=== PATIENT | female | born 2000 | race Hispanic/Latino ===

== ENCOUNTER 2020-12-07 17:43 | Emergency (ER) | payer SELFPAY ==
--- OUTSIDE RECORDS SUMMARY | 2020-12-07 17:46 | XMS REPORT | Continuity of Care Document ---
:2000 Author Organization [facility] t Address [address] [place] [address] Care Team Providers Name Role Phone Pcp Primary Care Physician Unavailable Crystal Attending Clinician [phone] Mike Attending Clinician Unavailable Bharath Attending Clinician Unavailable Deandre Attending Clinician Unavailable Huyen Attending Clinician Unavailable Peri Attending Clinician Unavailable Presley Attending Clinician Unavailable Fernando Attending Clinician Unavailable Kandi Attending Clinician [phone] Siva Attending Clinician Unavailable Caro Attending Clinician Unavailable Elizabeth Attending Clinician [phone] Mehdi Attending Clinician Unavailable Robert Attending Clinician [phone] Frank Attending Clinician Unavailable Francois Attending Clinician [phone] Sekou Attending Clinician Unavailable Farhat Attending Clinician Unavailable Justin Attending Clinician [phone] Nilesh Attending Clinician Unavailable Kenan Attending Clinician Unavailable Josué Attending Clinician [phone] Santana Attending Clinician Unavailable Juana Attending Clinician [phone] Cyrus Attending Clinician [phone] Galilea Attending Clinician [phone] Scott Attending Clinician Unavailable Manuel Attending Clinician Unavailable Hema Attending Clinician Unavailable Edith Attending Clinician Unavailable Brown Unavailable [phone] Foster Unavailable [phone] MatukVillazon Unavailable [phone] Mwraquel Unavailable [phone] Kandi Unavailable [phone] Perona Unavailable [phone] Problems Condition Condition Condition Status Onset Resolution Last Treating Co mments Source Name Details Category Date Date Treatment Clinician Date Vaccine Condition Active 2015-062016-07-27 Nan Jones against 12:27:54 Elin Commun i disease 00:00: ty NOS 00 Health Verruca Condition Active 2016-02-18 Nan Jones vulgaris, 01-20 09:02:03 Elin Comm uni multiple 00:00: ty 00 Health Encounter Condition Active 2016-02-18 Devonte Jones for 01-20 09:02:03 Elin Communi routine 00:00: ty child 00 Health health examinatio n with abnormal findings Contracept Condition Active 2016-01-21 Devonte Jones ion 01-20 16:53:44 Elin Communi counseling 00:00: ty 00 Health PERSONAL Condition Active 2015-03-30 Devonte Bridges HISTORY OF 01-22 18:23:57 Marycarmen Comm uni ALLERGY TO 00:00: ty MILK 00 Health PRODUCTS Obesity Condition Active 2015-01-26 Gurpreet Bridges egacy 01-22 22:14:03 Marycarmen Communi 00:00: ty 00 Health Hypertrigl Condition Active 2015-01-26 Devonte Bridges yceridemia 01-22 22:14:03 Marycarmen Comm uni 00:00: ty 00 Health BMI, Condition Active 2015-01-26 Nan Bridges pediatric, 01-22 22:14:03 Marycarmen Comm uni 95th 00:00: ty percentile 00 Health and over = 99% ACANTHOSIS Condition Active 2014-01-04 [facility] NIGRICANS 11-01 16:33:46 Eliseo schmitz Co mmuni 00:00: ty 00 Health WEIGHT Condition Active 2014-01-04 [facility] GAIN, 11-01 16:33:46 Eliseo schmitz Commu ni ABNORMAL 00:00: ty 00 Health URI - Condition Active 2018-062019-07-07 2019-04-06 Olimpiaga, Legacy acute 00:00:00 11:42:30 Carretta Comm uni 00:00: ty 00 Health History of Past Illness Condition Condition Condition Status Onset Resolution Last Treating Co mments Source Name Details Category Date Date Treatment Clinician Date Foot pain, Condition Inactiv 2016-12-12 2016-09-11 Camden Chau right e 09-11 00:00:00 11:15:34 Commun i 00:00: ty 00 Health Pharyngiti Condition Inactiv 2016-12-12 2016-09-11 Kandi, Raymon e Legacy s acute e - 00:00:00 11:15:34 Commu ni 00:00: ty 00 Health Allergic Condition Inactiv 2016-2016-11-29 2016-09-11 Perona, Legacy conjunctiv e - 00:00:00 10:57:37 Loren C ommuni itis, 00:00: ty bilateral 00 Health Allergic Condition Inactiv 2016-2016-11-29 2016-09-11 Perona, Legacy rhinitis e 08-29 00:00:00 10:57:37 Loren Com carlos 00:00: ty 00 Health Depo Condition Inactiv 2015-2016-07-27 2016-07-27 Devonte Jones Provera e 0- 00:00:00 12:42:29 Elin Comm uni injection 00:00: ty administer 00 Health ed Chlamydia Condition Inactiv 2015-2016-07-27 2016-07-27 Robert, Tr eated, Legacy trachomati e 02-02 00:00:00 12:42:29 Elin reported Communi s 00:00: ty 00 Health Pharyngiti Condition Inactiv 2015-2016-05-20 2016-03-23 Devonte Jones s acute e 02-17 00:00:00 18:17:00 Elin Comm uni 00:00: ty 00 Health Abdominal Condition Inactiv 2014-2016-01-21 2016-01-21 Robert [facility] pain e 01-22 00:00:00 16:53:44 Elin Commu ni 00:00: ty 00 Health WELL CHILD Condition Inactiv 2013-2016-01-21 2016-01-21 Devonte Jones EXAMINATIO e 01-04 00:00:00 16:53:44 Elin C ommuni N 00:00: ty 00 Health SORE Condition Inactiv 2013-2014-01-04 2014-01-05 [facility] [facility] THROAT, e -14 00:00:00 08:50:26 Eliseo schmitz Co mmuni STREPTOCOC 00:00: ty KYLE 00 Health Allergies, Adverse Reactions, Alerts This patient has no known allergies or adverse reactions. Social History Social Habit Start Date Stop Date Quantity Comments Source Sex Assigned At [facility] passive cigarette 2019-04-06 2019-04-06 No Legacy smoke exposure 10:35:47 10:35:47 [facility] Health social history 2016-09-11 2016-09-11 reviewed - no Legacy reviewed E&M 10:25:46 10:25:46 changes required [facility] sexual orientation 2016-09-11 2016-09-11 Heterosexual Lega cy 10:25:46 10:25:46 [facility] social history E&M 2016-01-21 2016-01-21 Live with mother, Legacy 15:45:35 15:45:35 father and two [facility] other sibilings Health condom use 2016-01-21 2016-01-21 yes Legacy 15:45:35 15:45:35 [facility] Gender(s) of 2016-01-21 2016-01-21 Male Legacy previous or current 15:45:35 15:45:35 Commu nity sexual relationships Heal th Ever had sexual 2016-01-21 2016-01-21 Yes Legacy intercourse? 15:45:35 15:45:35 [facility] drug use, illicit 2016-01-21 2016-01-21 Never Legacy 15:45:35 15:45:35 [facility] alcohol use 2016-01-21 2016-01-21 Never Legacy 15:45:35 15:45:35 [facility] is there any chance 2015-01-22 2015-01-22 No Legac y that you could be 16:11:48 16:11:48 Communi ty ? Health Smoking Status Start Date Stop Date Source Never smoked tobacco (finding) L egacy [facility] Medications Ordered Filled Start Stop Current Ordering Indication Dosage Frequency Signature Comments Components Source Medication Medication Date Date Medication? Clinician (SIG) Name Name (IBUPROFEN) 2018-06- No Carretta 2tab by Legacy 200 MG TABS 0-17 - Mwesiga mouth Com carlos 00:00: 00:00 every 6-8 ty 00 :00 hours as Health needed for pain, fever BROMFED DM 2018-06- No Carretta 10mL 4xD 10ml By Legacy (PSEUDOEPH- 0-17 10- Mwesiga Mouth Com carlos BROMPHEN-DM 00:00: 00:00 every 6hrs ty ) 30-2-10 00 :00 As Needed Healt h MG/5ML SYRP azithromyci Yes Use as [facility] - (ZITHROMAX 00:00: 1 pack. 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 Israeli Label. ORTHO EVRA 2015- No Legacy 01-20 Communi 00:00: 00:00 ty 00 :00 Health Procedures Procedure Date / Time Performing Source Performed Clinician Rapid Strep - In House 2019-04-06 11:36:33 Kim Rojas [facility] Rapid Strep - In House 2016-09-11 10:57:46 Vazquez Chau [facility] Urinalysis - - In 2016-07-27 13:20:38 Elin Jones [facility] Injection, 2016-07-27 13:02:07 Elin Jones Commu nity medroxyprogesterone acetate Heal th (Depo), 150 mg Injection, 2016-03-24 10:46:38 Elin Jones Commu nity medroxyprogesterone acetate Heal th (Depo), 150 mg Urinalysis - - In 2016-03-23 18:06:07 Elin Jones [facility] Rapid Strep - In House 2016-02-18 09:12:38 Vazquez Chau [facility] Azithromycin oral 2016-02-04 12:09:32 Elin Jones [facility] Urinalysis - - In 2016-01-21 16:44:[address] [facility] Hearing 2016-01-21 16:44:14 Elin Jones Commu [facility] Urinalysis - Dip only - In 2015-01-22 18:11:26 Marycarmen Bridges anupam [facility] Urinalysis - - In 2015-01-22 18:11:26 Marycarmen Bridgesdaniela [facility] Plan of Care Planned Activity Planned Date Details Comments Source Future Scheduled 2020-02-[address] [facility] - Test 00:00:00 (#1) [code = Medical Center INFLUENZA VACCINE (#1)] Encounters Start End Encounter Admission Attending Care Care Encounter Source Date/Time Date/Time Type Type Clinicians Facility Department ID 2019-04-06 2019-04-06 [facility] 00:[facility]:00 00:00:00 Visit Kim Pediatrics [id number] Communi [id number] [facility] 2019-04-06 2019-04-06 [facility] 00:00:00 00:00:00 Visit [facility] [id number] Communi [id number] [facility] 2019-04-06 2019-04-06 Office raquel [facility] Encounter/ Legacy 00:00:00 00:00:00 Visit P[facility]o [id number] Communi [id number] [facility] 2019-04-06 2019-04-06 Office Bharath [facility] Encoun ter/ Legacy 00:00:00 00:00:00 Visit Windy OB [id number] Com carlos [id number] [facility] 2019-01-04 2019-01-04 Office Deandre [facility] Encou nter/ Legacy 00:00:00 00:00:00 Visit Ivett [facility] [id number] Communi [id number] [facility] 2017-12-30 2017-12-30 Office Huyen [facility] Encoun ter/ Legacy 00:00:00 00:00:00 Visit Elin Pediatrics [id number] Communi [id number] [facility] 2017-08-11 2017-08-11 Office [facility] Legacy 00:00:00 00:00:00 Visit [facility] [id number] [facility] 994556 [facility] 2017-04-01 2017-04-01 Office Preload, [facility] Legacy Encounter / Legacy 00:00:00 00:00:00 [facility] [id number] [facility] 030647 [facility] 2016-12-04 2016-12-04 Office Preload [facility] Legacy Encounter / Legacy 00:00:00 00:00:00 Visit [facility] [id number] [facility] [id number] [facility] 2016-09-24 2016-09-24 Office Geri King [facility] Encounter/ Legacy 00:00:00 00:00:00 Visit Kandi [facility] [id number] [address] [place] [address] 179382 [facility] 2016-09-18 2016-09-18 Office Nona Paniagua [facility] E ncounter/ Legacy 00:00:00 00:00:00 Visit Geri [facility] 1 [id number] [facility] Vazquez Chau 862109 [facility] 2016-09-11 2016-09-11 Office KandiVazquez [facility] Encoun ter/ Legacy 00:00:00 00:00:00 Visit Urgent Care [id number] [facility] [id number] [facility] 2016-09-11 2016-09-11 Office Vazquez Chau [facility] Encoun ter/ Legacy 00:00:00 00:00:00 Visit Geri [facility] 1 [id number] [facility] Enrrique Elizondo [id number] [facility] 2016-08-29 2016-08-29 Office Loren Johnson [facility] Encounter/ Legacy 00:00:00 00:00:00 Visit Nona Paniagua [facility] [id number] [facility] 457604 [facility] 2016-07-27 2016-07-27 Office Mehdi [facility] Encou nter/ Legacy 00:00:00 00:00:00 Visit Basilia [facility] [id number] [facility] [id number] [facility] 2016-07-27 2016-07-27 Office Robert [facility] Encounte r/ Legacy 00:00:00 00:00:00 Visit Elin [facility]s [id number] Communi [id number] ty Health 2016-07-27 2016-07-27 Office Robert Elin [facility] E ncounter/ Legacy 00:00:00 00:00:00 Visit Basilia [facility] 1 [id number] [facility] [id number] Health 2016-07-23 2016-07-[address] [facility] Legacy 00:00:00 00:00:00 Visit Elin [facility] [id number] [facility] [id number] Health 2016-06-19 2016-06-19 Office Huyen [facility] Encoun ter/ Legacy 00:00:00 00:00:00 Visit Elin [facility] [id number] [facility] [id number] Health 2016-03-23 2016-03-23 Office KandiVazquez santoyo [facility] Encoun ter/ Legacy 00:00:00 00:00:00 Visit Pediatrics [id number] Communi [id number] Health 2016-03-23 2016-03-23 Office Robert [facility] Encounte r/ Legacy 00:00:00 00:00:00 Visit Elin [facility] [id number] [facility] 760380 Health 2016-03-23 2016-03-23 Office Robert [facility] Encounte r/ Legacy 00:00:00 00:00:00 Visit Elin [facility] [id number] [facility] 947043 ty Health 2016-03-23 2016-03-23 Office RobertElin [facility] E ncounter/ Legacy 00:00:00 00:00:00 Visit Alesha Marie [facility] [id number] [facility] 143518 ty Health 2016-02-18 2016-02-18 Office Vazquez Chau [facility] Encoun ter/ Legacy 00:00:00 00:00:00 Visit Pediatrics [id number] Communi [id number] ty Health 2016-02-18 2016-02-18 Office Vazquez Chau [facility] Encoun ter/ Legacy 00:00:00 00:00:00 Visit Urgent Care [id number] Communi [id number] ty Health 2016-02-18 2016-02-18 Office Vazquez Chau [facility] Encoun ter/ Legacy 00:00:00 00:00:00 Visit Christina Parrish [facility] 1 [id number] [facility] Suraj Sapp 665638 ty Health 2016-02-18 2016-02-18 [facility] Legacy 00:00:00 00:00:00 Visit Elin [facility] [id number] [facility] [id number] Health 2016-02-03 2016-02-03 [facility] Legacy 00:00:00 00:00:00 Visit Elin [facility] [id number] [facility] [id number] ty Health 2016-02-03 2016-02-03 [facility] Legacy 00:00:00 00:00:00 Visit Elin [facility] [id number] [facility] [id number] Health 2016-02-03 2016-02-03 Office Robert [facility] Encounte r/ Legacy 00:00:00 00:00:00 Visit El[facility] [id number] [facility] [id number] Health 2016-02-03 2016-02-03 Office Elin Jones [facility] E ncounter/ Legacy 00:00:00 00:00:00 Visit Bobby [facility] [id number] [facility] Alesha Marie 223029 Health 2016-01-28 2016-01-28 Office Frank [facility] Encounte r/ Legacy 00:00:00 00:00:00 Visit Alesha Pediatric[facility] [id number] [facility] [id number] Health 2016-01-22 2016-01-22 [facility] Legacy 00:00:00 00:00:00 Visit Elin [facility] [id number] [facility] 878733 ty Health 2016-01-21 2016-01-21 Office Robert [facility] Encounte r/ Legacy 00:00:00 00:00:00 Visit Elin [facility] [id number] [facility] 173567 ty Health 2016-01-21 2016-01-21 [facility] Legacy 00:00:00 00:00:00 Visit Elin [facility] [id number] [facility] 384021 ty Health 2016-01-21 2016-01-21 Office Brown, [facility] Encounte r/ Legacy 00:00:00 00:00:00 Visit Elin [facility] [id number] Communi [id number] ty Health 2016-01-21 2016-01-21 Office Robert [facility] Encounte r/ Legacy 00:00:00 00:00:00 Visit Elin [facility] [id number] [facility] 700487 ty Health 2016-01-21 2016-01-21 Office Elin Jones [facility] E ncounter/ Legacy 00:00:00 00:00:00 Visit Meghan Anderson [facility] [id number] [facility] Alesha Marie 637157 Health 2015-06-01 2015-06-01 Office Nilesh [facility] Encounte r/ Legacy 00:00:00 00:00:00 Visit Miriam [facility] [id number] Communi [id number] Health 2015-05-15 2015-05-15 Office Kenan [facility] Encounte r/ Legacy 00:00:00 00:00:00 Visit Chinyere Pediatrics [id number] [facility] 647541 ty Health 2015-01-29 2015-01-29 Office Josué [facility] En[facility]/ Legacy 00:00:00 00:00:00 Visit Casi Pediatrics [id number] Communi [id number] ty Health 2015-01-28 2015-01-28 Office Santana [facility] Encounte r/ Legacy 00:00:00 00:00:00 Visit Stefani Pediatrics [id number] Communi 144414 ty Health 2015-01-28 2015-01-28 Office Juana [facility] Encounte r/ Legacy 00:00:00 00:00:00 Visit Yudi Pediatrics [id number] [facility] 341204 ty Health 2015-01-22 2015-01-22 Office Cyrus [facility] Encounte r/ Legacy 00:00:00 00:00:00 Visit Marycarmen Pediatrics [id number] Communi [id number] ty Health 2015-01-22 2015-01-22 Office Juana [facility] Encounte r/ Legacy 00:00:00 00:00:00 Visit Yudi Pediatrics [id number] [facility] 415676 ty Health 2015-01-22 2015-01-22 Office Boni [facility] Encoun ter/ Legacy 00:00:00 00:00:00 Visit on, Eliseo Community [id number] [facility] [id number] Services Health 2015-01-22 2015-01-22 Office Cyrus [facility] Encounte r/ Legacy 00:00:00 00:00:00 Visit Marycarmen Pediatrics [id number] [facility] [id number] Health 2015-01-22 2015-01-22 Office Cyrus [facility] Encounte r/ Legacy 00:00:00 00:00:00 Visit Marycarmen Pediatrics [id number] [facility] [id number] Health 2015-01-22 2015-01-22 Office Cyrus Marycarmen [facility] E ncounter/ Legacy 00:00:00 00:00:00 Visit Nguyen Chavez [facility] [id number] [facility] Stefani Dillon 245060 Health 2014-03-16 2014-03-16 Office Huyen [facility] Encoun ter/ Legacy 00:00:00 00:00:00 Visit Elin [facility] [id number] [facility] 444159 Health 2014-03-09 2014-03-09 Office Manuel [facility] Encount er/ Legacy 00:00:00 00:00:00 Visit Citlaly Pediatrics [id number] [facility] 738755 Health 2014-01-04 2014-01-04 [facility] Legacy 00:00:00 00:00:00 Visit on, El[facility]o [facility] [id number] [facility] [id number] Health 2014-01-04 2014-01-04 Office Eliseo Calero [facility] est Encounter/ Legacy 00:00:00 00:00:00 Visit Bobby [facility] [id number] [facility] Misti Garrido 63402 0 Health 2013-11-01 2013-11-01 [facility] Legacy 00:00:00 00:00:00 Visit on, [facility] [id number] [facility] [id number] [facility] Health 2013-11-01 2013-11-01 Office [facility] Enco unter/ Legacy 00:00:00 00:00:00 Visit on, Eliseo [facility] [id number] [facility] 026830 [facility] 2013-11-01 2013-11-01 Office MarshallGiorgiomilagros [facility] Enco unter/ Legacy 00:00:00 00:00:00 Visit on, [facility] [id number] [facility] 723902 [facility] 2013-11-01 2013-11-01 Office Dillon, [facility] [place] Encounte r/ Legacy 00:00:00 00:00:00 Visit Stefani Pediatrics [id number] [facility] 131116 [facility] 2013-11-01 2013-11-01 Office Galilea, Eliseo [facility] Encounter/ Legacy 00:00:00 00:00:00 Visit Nguyen Chavez [facility] [id number] [facility] Sera Sharma 825480 [facility] 2010-04-08 2010-04-08 Office Preload, [facility] Legacy Encounter / Legacy 00:00:00 00:00:00 [facility] [id number] [facility] 893002 [facility] 2010-04-08 2010-04-08 Office Preload, [facility] Legacy Encounter / Legacy 00:00:00 00:00:00 Visit [facility] [id number] [facility] 170676 [facility] 2010-04-08 2010-04-08 Office Preload, [facility] Legacy Encounter / Legacy 00:00:00 00:00:00 Visit [facility] [id number] [facility] [id number] [facility] Results Test Description Test Time Test Comments Results Result Comments Source beta streptococcus screen, throat 2019-04-06 16:08:00 Test Item Value Reference Range Interpretation Comme nts beta streptococcus screen, throat (test code = 24940-0) Negative [facility] rapid strep method 2019-04-06 10:35:47 Test Item Value Reference Range Interpretation Comments Microbial identification kit, rapid negative strep method (test code = 96864-2) [facility], urine, [id number] 12:13:59 Test Item Value Reference Range Interpretation Comments beta HCG, urine, semiquantitative negative (test code = 2106-3) [facility] gonorrhoeae DNA [id number] 19:45:00 Test Item Value Reference Range Interpretation Comments Neisseria gonorrhoeae DNA probe Negative Negative (test code = 31850-1) [facility] DNA [id number] 19:45:00 Test Item Value Reference Range Interpretation Comments chlamydia DNA probe (test code = Negative Negative 77510-7) [facility] streptococcus screen, [id number] 12:23:00 Test Item Value Reference Range Interpretation Comments beta streptococcus screen, throat Negative (test code = 68295-1) [facility], rapid strep method 2016-02-18 08:22:20 Test Item Value Reference Range Interpretation Comments Microbial identification kit, rapid negative strep method (test code = 35772-7) [facility] gonorrhoeae DNA [id number] 18:00:00 Test Item Value Reference Range Interpretation Comments Neisseria gonorrhoeae DNA probe Negative Negative (test code = 31731-7) [facility] DNA [id number] 18:00:00 Test Item Value Reference Range Interpretation Comments chlamydia DNA probe (test code = Positive Negative A 09014-9) [facility] H[facility], urine, [id number] 15:45:35 Test Item Value Reference Range Interpretation Comments beta HCG, urine, semiquantitative negative (test code = 2106-3) [facility] gonorrhoeae DNA [id number] 18:22:00 Test Item Value Reference Range Interpretation Comments Neisseria gonorrhoeae DNA probe Negative Negative (test code = 50233-6) [facility] DNA [id number] 18:22:00 Test Item Value Reference Range Interpretation Comments chlamydia DNA probe (test code = Negative Negative 54927-8) [facility] Baptistglucose, urine, [id number] 16:11:48 Test Item Value Reference Range Interpretation Comments glucose, urine, semiquantitative negative (test code = 123) [facility] Baptistbilirubin, [id number] 16:11:48 Test Item Value Reference Range Interpretation Comments bilirubin, urine (test code = 319) negative [facility] Baptistketones, urine, by test [id number] 16:11:48 Test Item Value Reference Range Interpretation Comments ketones, urine, by test strip (test negative code = 322) [facility] Baptistspecific gravity, [id number] 16:11:48 Test Item Value Reference Range Interpretation Comments specific gravity, urine (test code = 1.020 325) [facility] Baptistblood in urine (hemoglobin) by [id number] 16:11:48 Test Item Value Reference Range Interpretation Comments blood in urine (hemoglobin) by negative dipstick (test code = 4998) [facility] BaptistpH, urine, [id number] 16:11:48 Test Item Value Reference Range Interpretation Comments pH, urine, semiquantitative (test code 6.0 = 324) [facility] Baptistprotein, urine, semiquantitative (dipstick)2015-01-22 16:11:48 Test Item Value Reference Range Interpretation Comments protein, urine, semiquantitative negative (dipstick) (test code = 1753-3) [facility] Baptisturobilinogen, urine, semiquantitative (dipstick) 2015-01-22 16:11:48 Test Item Value Reference Range Interpretation Comments urobilinogen, urine, semiquantitative 0.2 (dipstick) (test code = 326) [facility] Baptistnitrite, urine, [id number] 16:11:48 Test Item Value Reference Range Interpretation Comments nitrite, urine, semiquantitative negative (test code = 323) [facility] Baptistleukocyte esterase, urine, by [id number] 16:11:48 Test Item Value Reference Range Interpretation Comments leukocyte esterase, urine, by negative dipstick (test code = 327) [facility] Baptistappearance, [id number] 16:11:48 Test Item Value Reference Range Interpretation Comments appearance, urine (test code = 328) clear [facility] Healthurine [id number] 16:11:48 Test Item Value Reference Range Interpretation Comments urine color (test code = 2751) yellow [facility] Baptistbeta HCG, urine, [id number] 16:11:48 Test Item Value Reference Range Interpretation Comments beta HCG, urine, semiquantitative negative (test code = 2106-3) [facility] Baptistbeta streptococcus screen, [id number] 11:15:00 Test Item Value Reference Range Interpretation Comments beta streptococcus screen, throat Negative (test code = 19519-9) [facility] BaptistEstimated Average [id number] 11:10:00 Test Item Value Reference Range Interpretation Comments Estimated Average Glucose (test 123 mg/dL code = 280417) [facility] Baptisthemoglobin A1C, blood, as % of total [id number] 11:10:00 Test Item Value Reference Range Interpretation Comments hemoglobin A1C, blood, as % of total 5.9 % 4.8-5.6 H hemoglobin (test code = 4548-4) [facility] BaptistLDL cholesterol, [id number] 11:10:00 Test Item Value Reference Range Interpretation Comments LDL cholesterol, serum (test code = 69 mg/dL 0-109 2088-1) [facility] Baptistvery low density [id number] 11:10:00 Test Item Value Reference Range Interpretation Comments very low density lipoproteins (test 44 mg/dL 5-40 H code = 2548) [facility] BaptistHDL cholesterol, [id number] 11:10:00 Test Item Value Reference Range Interpretation Comments HDL cholesterol, serum (test code = 42 mg/dL >39 2084-9) [facility] Baptisttriglyceride, serum, [id number] 11:10:00 Test Item Value Reference Range Interpretation Comments triglyceride, serum, fasting (test 222 mg/dL 0-89 H code = 2571-8) [facility] Baptistcholesterol, [id number] 11:10:00 Test Item Value Reference Range Interpretation Comments cholesterol, serum (test code = 155 mg/dL 828-019 5902-3) [facility] Baptistalanine aminotransferase (SGPT), [id number] 11:10:00 Test Item Value Reference Range Interpretation Comments alanine aminotransferase (SGPT), serum 17 1/L 0-24 (test code = 40) [facility] Baptistaspartate aminotransferase (SGOT), [id number] 11:10:00 Test Item Value Reference Range Interpretation Comments aspartate aminotransferase (SGOT), 25 1/L 0-40 serum (test code = 39) [facility] Baptistalkaline phosphatase, [id number] 11:10:00 Test Item Value Reference Range Interpretation Comments alkaline phosphatase, serum (test 181 1/L 134-349 code = 3) [facility] Baptistbilirubin, serum, [id number] 11:10:00 Test Item Value Reference Range Interpretation Comments bilirubin, serum, total (test code 0.2 mg/dL 0.0-1.2 = 43) [facility] Healthalbumin/globulin ratio, [id number] 11:10:00 Test Item Value Reference Range Interpretation Comments albumin/globulin ratio, serum (test 1.3 1.1-2.5 code = 146) [facility] Healthglobulin, [id number] 11:10:00 Test Item Value Reference Range Interpretation Comments globulin, serum (test code = 3059) 3.6 1.5-4.5 [facility] Healthalbumin, [id number] 11:10:00 Test Item Value Reference Range Interpretation Comments albumin, serum (test code = 2) 4.5 g/dL 3.5-5.5 [facility] Healthprotein, total, [id number] 11:10:00 Test Item Value Reference Range Interpretation Comments protein, total, serum (test code = 8.1 g/dL 6.0-8.5 36) [facility] Healthcalcium, [id number] 11:10:00 Test Item Value Reference Range Interpretation Comments calcium, serum (test code = 11) 10.3 mg/dL 8.9-10.4 [facility] Baptistcarbon dioxide, venous [id number] 11:10:00 Test Item Value Reference Range Interpretation Comments carbon dioxide, venous blood (test 24 mmol/L 17-26 code = 15) [facility] Healthchloride, [id number] 11:10:00 Test Item Value Reference Range Interpretation Comments chloride, serum (test code = 13) 101 mmol/L 97-108 [facility] Healthpotassium, [id number] 11:10:00 Test Item Value Reference Range Interpretation Comments potassium, serum (test code = 35) 4.4 mmol/L 3.5-5.2 [facility] Healthsodium, [id number] 11:10:00 Test Item Value Reference Range Interpretation Comments sodium, serum (test code = 159) 139 mmol/L 134-144 [facility] Baptisturea nitrogen/creatinine ratio, [id number] 11:10:00 Test Item Value Reference Range Interpretation Comments urea nitrogen/creatinine ratio, serum 17 9-25 (test code = 2462) [facility] Healthcreatinine, [id number] 11:10:00 Test Item Value Reference Range Interpretation Comments creatinine, serum (test code = 18) 0.53 mg/dL 0.42-0.75 [facility] Baptisturea nitrogen, [id number] 11:10:00 Test Item Value Reference Range Interpretation Comments urea nitrogen, blood (test code = 9) 9 mg/dL 5-18 [facility] Baptistblood glucose, [id number] 11:10:00 Test Item Value Reference Range Interpretation Comments blood glucose, random (test code = 88 mg/dL 65-99 8) [facility] Baptistimmature granulocytes, percentage of total cells, blood 2013-11-01 11:10:00 Test Item Value Reference Range Interpretation Comments immature granulocytes, percentage of 0 % 0-2 total cells, blood (test code = 449854) [facility] Baptistbasophil count, [id number] 11:10:00 Test Item Value Reference Range Interpretation Comments basophil count, absolute (test 0.0 x10E3/uL 0.0-0.3 code = 96690) [facility] BaptistEosinophil Absolute [id number] 11:10:00 Test Item Value Reference Range Interpretation Comments Eosinophil Absolute Count (test 0.1 X10E3/UL 0.0-0.4 code = 886178) [facility] Baptistmonocyte count, blood, [id number] 11:10:00 Test Item Value Reference Range Interpretation Comments monocyte count, blood, automated 0.6 X10E3/UL 0.1-0.8 (test code = 3076) [facility] Baptistlymphocyte count, blood, [id number] 11:10:00 Test Item Value Reference Range Interpretation Comments lymphocyte count, blood, 3.4 X10E3/UL 1.3-3.7 automated (test code = 3074) [facility] BaptistAbsolute [id number] 11:10:00 Test Item Value Reference Range Interpretation Comments Absolute Neutrophils (test code 3.1 X10E3/UL 1.2-6.0 = 79689) [facility] Baptistbasophils as percent of blood [id number] 11:10:00 Test Item Value Reference Range Interpretation Comments basophils as percent of blood 0 % 0-2 leukocytes (test code = 2426) [facility] Healtheosinophils as percent of blood [id number] 11:10:00 Test Item Value Reference Range Interpretation Comments eosinophils as percent of blood 1 % 0-5 leukocytes (test code = 4170) [facility] Healthmonocytes as percent of blood [id number] 11:10:00 Test Item Value Reference Range Interpretation Comments monocytes as percent of blood 8 % 3-11 leukocytes (test code = 2421) [facility] Baptistlymphocytes as percent of blood [id number] 11:10:00 Test Item Value Reference Range Interpretation Comments lymphocytes as percent of blood 48 % 24-54 leukocytes (test code = 317) [facility] Baptistneutrophils as percent of blood [id number] 11:10:00 Test Item Value Reference Range Interpretation Comments neutrophils as percent of blood 43 % 32-65 leukocytes (test code = 316) [facility] Baptistplatelet [id number] 11:10:00 Test Item Value Reference Range Interpretation Comments platelet count (test code = 66) 336 X10E3/UL 176-407 [facility] Baptistred blood cell distribution [id number] 11:10:00 Test Item Value Reference Range Interpretation Comments red blood cell distribution width 13.6 % 12.3-15.1 (test code = 1030) [facility] corpuscular hemoglobin concentration, [id number] 11:10:00 Test Item Value Reference Range Interpretation Comments mean corpuscular hemoglobin 34.9 G/DL 31.7-36.0 concentration, RBC (test code = 1029) [facility] corpuscular hemoglobin, [id number] 11:10:00 Test Item Value Reference Range Interpretation Comments mean corpuscular hemoglobin, RBC 27.8 pg 25.7-31.5 (test code = 1031) [facility] corpuscular volume, [id number] 11:10:00 Test Item Value Reference Range Interpretation Comments mean corpuscular volume, RBC (test code 80 fL 77-91 = 315) [facility] Baptisthematocrit, [id number] 11:10:00 Test Item Value Reference Range Interpretation Comments hematocrit, blood (test code = 64) 38.1 % 34.8-45.8 [facility] Baptisthemoglobin, [id number] 11:10:00 Test Item Value Reference Range Interpretation Comments hemoglobin, blood (test code = 65) 13.3 g/dL 11.7-15.7 [facility] Baptisterythrocyte (RBC) [id number] 11:10:00 Test Item Value Reference Range Interpretation Comments erythrocyte (RBC) count (test 4.79 X10E6/UL 3.91-5.45 code = 67) [facility] Baptistleukocyte count, [id number] 11:10:00 Test Item Value Reference Range Interpretation Comments leukocyte count, blood (test 7.2 X10E3/UL 3.7-10.5 code = 68) [facility] Baptistthyroxine, serum, [id number] 11:10:00 Test Item Value Reference Range Interpretation Comments thyroxine, serum, free (test code 0.96 ng/dL 0.93-1.60 = 24) [facility] Baptistthyroid stimulating hormone, [id number] 11:10:00 Test Item Value Reference Range Interpretation Comments thyroid stimulating hormone, 2.090 u[iU]/mL 0.450-4.500 serum (test code = 29) [facility] BaptistMicrobial identification kit, rapid strep method 2013-11-01 09:50:52 Test Item Value Reference Range Interpretation Comments Microbial identification kit, rapid negative strep method (test code = 43346-1) [facility]
[2020-12-07] MEDS ORDERED: BUPIVACAINE 0.5% PF 10 ML VIAL ONE (18:35)
--- NOTE | 2020-12-07 18:44 | RAD REPORT ---
EXAM DESCRIPTION: RAD - Hand Right 3 View - 12/07/2020 6:32 pm CLINICAL HISTORY: Right hand pain status post injury FINDINGS: No fracture or dislocation is seen.
--- NOTE | 2020-12-07 19:15 | ER ---
Nurse's Notes [facility] Name: Debar Torres Age: 19 yrs Sex: Female : 2000 Arrival Date: 12/07/2020 Time: 17:46 Bed 8 [facility] MD: Diagnosis: Thumb Nail Avulsion Presentation: 12/07 18:10 Chief complaint: Partial right thumb nail av[place]. Coronavirus hb screen: At this time, the client does not indicate any symptoms associated with coronavirus-19. Ebola Screen: No symptoms or risks identified at this time. Initial Sepsis Screen: Does the patient meet any 2 criteria? No. Patient's initial sepsis screen is negative. Does the patient have a suspected source of infection? No. Patient's initial sepsis screen is negative. Risk Assessment: Do you want to hurt yourself or someone else? Patient reports no desire to harm self or others. Onset of symptoms was December 07, 2020. 18:10 Method Of Arrival: Ambulatory hb 18:10 Acuity: KANDI 4 hb Historical: - Allergies: 18:12 No Known Allergies; hb - Home Meds: 18:12 None [Active]; hb - PMHx: 18:12 None; hb - PSHx: 18:12 None; hb - Immunization history:: Adult Immunizations up to date. - Social history:: Smoking status: Patient denies any tobacco usage or history of. Screenin:31 Abuse screen: Denies threats or abuse. Nutritional screening: No deficits noted. jd3 Tuberculosis screening: No symptoms or risk factors identified. Fall Risk Ambulatory Aid- None/Bed Rest/Nurse Assist (0 pts). Gait- Normal/Bed Rest/Wheelchair (0 pts) Mental Status- Oriented to own ability (0 pts). Total Glass Fall Scale indicates No Risk (0-24 pts). Assessment: 18:30 General: Appears in no apparent distress. uncomfortable, Behavior is calm, cooperative, jd3 appropriate for age. Pain: Complains of pain in right thumb Quality of pain is described as aching, tender, stinging. Neuro: Level of Consciousness is awake, alert, obeys commands, Oriented to person, place, time, situation. Cardiovascular: Denies chest pain, Capillary refill < 3 seconds Patient's skin is warm and dry. Respiratory: Airway is patent Respiratory effort is even, unlabored, Respiratory pattern is regular, symmetrical, Denies cough, shortness of breath. GI: No signs and/or symptoms were reported involving the gastrointestinal system. : No signs and/or symptoms were reported regarding the genitourinary system. EENT: No signs and/or symptoms were reported regarding the EENT system. Derm: Skin is intact, Skin is dry, Skin is normal, Skin temperature is warm Bruising that is dark purple, on right thumb. Musculoskeletal: Circulation, motion, and sensation intact. Range of motion: limited in IP of right thumb and MCP of right thumb Swelling present in right thumb. 19:00 Reassessment: Patient appears in no apparent distress at this time. Patient and/or jb4 family updated on plan of care and expected duration. Pain level reassessed. Patient is alert, oriented x 3, equal unlabored respirations, skin warm/dry/pink. 19:46 Reassessment: Patient appears in no apparent distress at this time. Patient and/or jb4 family updated on plan of care and expected duration. Pain level reassessed. Patient is alert, oriented x 3, equal unlabored respirations, skin warm/dry/pink. Pt verbalized understanding of d/c and follow up instructions. Denies questions or concerns. Vital Signs: 18:10 BP 155 / 105; Pulse 88; Resp 16; Temp 98; Pulse Ox 100% on R/A; Pain 8/10; hb 19:46 BP 130 / 81; Pulse 73; Resp 19; Pulse Ox 99% on R/A; jb4 ED Course: 17:46 Patient arrived in ED. mr 18:04 Jhonson Wilde PA is PHCP. jmm 18:04 Maite Stoddard MD is Attending Physician. jmm 18:11 Triage completed. hb 18:12 Arm band placed on. hb 18:14 Josué Jhaveri, BROOKLYNN is Primary Nurse. jd3 18:20 X-ray completed. Portable x-ray completed in exam room. md1 18:29 Hand Right 3 View XRAY In Process Unspecified. EDMS 18:32 Patient has correct armband on for positive identification. Bed in low position. Call jd3 light in reach. Side rails up X 1. Adult w/ patient. Pulse ox on. NIBP on. 19:26 No provider procedures requiring assistance completed. Patient did not have IV access lp1 during this emergency room visit. Administered Medications: 18:42 Drug: Marcaine (bupivacaine) (0.5 %) 10 ml Volume: 10 ml; Route: Infiltration; jd3 Outcome: 19:15 Discharge ordered by . annie 19:46 Discharged to home ambulatory. jb4 19:46 Condition: stable 19:46 Discharge instructions given to patient, Instructed on discharge instructions, follow up and referral plans. medication usage, Demonstrated understanding of instructions, follow-up care, medications, Prescriptions given X 1. 19:47 Patient left the ED. jb4 Signatures: Dispatcher [employer] EDMS Johnson Wilde PA PA jmm PedrazaMeghan mr Sharon Bowden, RN RN lp1 Elise Soliman, RN RN Damir Flores RN RN jb4 Josué Jhaveri RN RN jd3 Sis Denise
--- NOTE | 2020-12-07 19:15 | EDPHYS ---
Physician Documentation [facility] Name: Debra Torres Age: 19 yrs Sex: Female : 2000 Arrival Date: 12/07/2020 Time: 17:46 Bed 8 Private MD: ED Physician Maite Stoddard HPI: 12/07 19:07 This 19 yrs old Female presents to ER via Ambulatory with complaints of Finger jmm Injury. 19:07 The patient or guardian reports injury, pain. Onset: The symptoms/episode jmm began/occurred acutely, just prior to arrival. 19:11 Modifying factors: The symptoms are alleviated by nothing, the symptoms are aggravated jmm by nothing. Associated signs and symptoms: Pertinent negatives: decreased sensation distally, fever, nausea, numbness distally, tingling distally, vomiting. The patient has not experienced similar symptoms in the past. Historical: - Allergies: 18:12 No Known Allergies; hb - Home Meds: 18:12 None [Active]; hb - PMHx: 18:12 None; hb - PSHx: 18:12 None; hb - Immunization history:: Adult Immunizations up to date. - Social history:: Smoking status: Patient denies any tobacco usage or history of. ROS: 19:11 Constitutional: Negative for fever, chills, and weight loss, Cardiovascular: Negative jmm for chest pain, palpitations, and edema, Respiratory: Negative for shortness of breath, cough, wheezing, and pleuritic chest pain. 19:11 MS/extremity: Positive for injury or acute deformity. 19:11 All other systems are negative. Exam: 19:11 Constitutional: This is a well developed, well nourished patient who is awake, alert, jmm and in no acute distress. Head/Face: atraumatic. Eyes: EOMI, no conjunctival erythema appreciated ENT: Moist Mucus Membranes Neck: Trachea midline, Supple Chest/axilla: Normal chest wall appearance and motion. Cardiovascular: Regular rate and rhythm. No edema appreciated Respiratory: Normal respirations, no respiratory distress appreciated Abdomen/GI: Non distended, soft Back: Normal ROM Skin: General appearance color normal 19:11 Musculoskeletal/extremity: partial avulsion noted to the right thumb. 19:11 Skin: Appearance: Color: normal in color. 19:11 Neuro: Orientation: is normal, Mentation: is normal, Memory: is normal. 19:11 Psych: Behavior/mood is pleasant, cooperative. Vital Signs: 18:10 BP 155 / 105; Pulse 88; Resp 16; Temp 98; Pulse Ox 100% on R/A; Pain 8/10; hb 19:46 BP 130 / 81; Pulse 73; Resp 19; Pulse Ox 99% on R/A; jb4 MDM: 18:09 Patient medically screened. [facility] 19:12 Data reviewed: vital signs, nurses notes. Counseling: I had a detailed discussion with annie the patient and/or guardian regarding: the historical points, exam findings, and any diagnostic results supporting the discharge/admit diagnosis, radiology results, the need for outpatient follow up, to return to the emergency department if symptoms worsen or persist or if there are any questions or concerns that arise at home. ED course: Xray negative. Abx prescribed. Patient given wound infection return precautions. Patient understood and agrees with the plan of care. . 12/07 18:14 Order name: Hand Right 3 View XRAY; Complete Time: 18:58 [facility] 12/07 19:05 Order name: Wound Care: pressure dressing; Complete Time: 19:47 [facility] Administered Medications: 18:42 Drug: Marcaine (bupivacaine) (0.5 %) 10 ml Volume: 10 ml; Route: Infiltration; jd3 Disposition: 12/07/20 19:15 Discharged to Home. Impression: Thumb Nail Avulsion. - Condition is Stable. - Discharge Instructions: Nail Avulsion. - Prescriptions for Doxycycline Hyclate 100 mg Oral Tablet - take 1 tablet by ORAL route every 12 hours; 20 tablet. - Medication Reconciliation Form, Thank You Letter, Antibiotic Education, Prescription Opioid Use form. - Follow up: Private Physician; When: 2 - 3 days; Reason: Recheck today's complaints, Continuance of care, Re-evaluation by your physician. Signatures: Dispatcher [employer] EDMS Johnson Wilde PA PA Elise Dumont RN RN hb Bryson, James RN RN jb4 Josué Jhaveri RN RN jd3 Corrections: (The following items were deleted from the chart) 19:15 19:15 12/07/2020 19:15 Discharged to Home. Impression: Great Nail Avulsion. Condition [facility] is Stable. Forms are Medication Reconciliation Form, Thank You Letter, Antibiotic Education, Prescription Opioid Use. Follow up: Private Physician; When: 2 - 3 days; Reason: Recheck today's complaints, Continuance of care, Re-evaluation by your physician. annie 19:47 19:15 12/07/2020 19:15 Discharged to Home. Impression: Thumb Nail Avulsion. Condition jb4 is Stable. Forms are Medication Reconciliation Form, Thank You Letter, Antibiotic Education, Prescription Opioid Use. Follow up: Private Physician; When: 2 - 3 days; Reason: Recheck today's complaints, Continuance of care, Re-evaluation by your physician. annie
[2020-12-07 20:23] VITALS: TEMP 98
[2020-12-07 20:24] VITALS: BP 130/81; O2SAT 99
== END 2020-12-07 19:47 | disposition home or self-care (01) ==
LOC: ER 17:43
DX: S61.101A Unspecified open wound of right thumb with damage to nail, initial encounter (principal)
CPT/HCPCS: 99284